=== PATIENT | male | born 1990 ===

== ENCOUNTER → 2019-06-19 | Outpatient (CLI) | payer OTHER ==
[~2019-06-19] MED LIST: ASPI-621 PO; BUPR150T15 PO; CELE100C PO; CYCL10TA2 PO; GABA-585 PO
--- NOTE | 2019-06-19 09:58 | PAIN ---
DATE OF SERVICE: 06/19/2019 INITIAL CONSULTATION FOR PAIN CLINIC DIAGNOSES: Lumbar radiculopathy with lumbar degenerative disk disease. CHIEF COMPLAINT: Low back and bilateral lower extremity pain. HISTORY OF PRESENT ILLNESS: This is a 29-year-old male, who presents with history of pain in the low back, bilateral lower extremities for many years since about 07/2015. 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 The patient had some treatment at outside facility with some facet joint injections, which were not effectively decreasing his pain significantly. He has had no other treatment since that time. The patient reports the pain in the low back is constant, sharp, stabbing, shooting, radiating into the lower extremities bilaterally, slightly worse on the right with more weakness in the right leg with fatigue easily with activity. The patient reports it is radiating to posterior gluteus, posterior thighs, posterior calves into the ankles and feet bilaterally, again with some weakness on the right side with activity. The patient reports the disability rating from 0-10, 10 being the worst, is a 5 with family home responsibilities, 6 with recreation, 2 with social activity, 7 with occupational activity, 4 with sexual behavior, 1 with self-care, 0 with life support activities. The patient did have an MRI scan of the lumbar spine showing at L4-L5 a small central disk protrusion without associated lateral recess narrowing with foraminal narrowing. L5-S1 shows mild loss of disk space present with small broad-based disk protrusion, but disk osteophyte complex without associated spinal canal narrowing or foraminal narrowing. The patient reports no overt loss of motor function, but significant fatigability, especially in the right leg with even walking or standing more than 5-10 minutes, better with sitting down or lying down. The patient reports it does awaken him from sleep occasionally, but not every night. It does not affect his bowel or bladder control. He does not use any assistive devices to ambulate. PAST MEDICAL HISTORY: Significant for some arthritis and depression. PREVIOUS SURGERY: Include right knee scope and wisdom teeth extraction. CURRENT MEDICATIONS: Include Neurontin, Flexeril, Celebrex, Excedrin and Wellbutrin. ALLERGIES: The patient has no known drug allergies. FAMILY HISTORY: Significant for no major medical problems or conditions that he is aware of. SOCIAL HISTORY: The patient does not drink alcohol, does not smoke, does not use any illegal, illicit or recreational drugs. Is single. Is currently active in , but is in incarcerated custody in [place], [place]. REVIEW OF SYSTEMS: The patient's review of systems is positive for those items mentioned in history of present illness. All systems reviewed and otherwise negative. It is complete, full and well documented on the patient's chart. PHYSICAL EXAMINATION: VITAL SIGNS: The patient's blood pressure is 133/80, pulse 80, respirations 16, temperature is 97.7 degrees Fahrenheit, height is 70 inches, weighs 208 pounds. GENERAL: The patient is awake, alert, oriented, appropriate, has very pleasant demeanor. HEENT: Shows normocephalic, atraumatic. Extraocular movements are intact and symmetrical. Oral cavity: Mucous membranes moist and pink. Dentition is intact. NECK: Shows anterior throat supple without palpable lymphadenopathy noted. Swallow reflex symmetrical. CHEST: Shows normal on inspection. Breath sounds are clear bilaterally. HEART: Shows S1, S2 clear. No murmurs auscultated. ABDOMEN: Soft, nontender, nondistended. No palpable organomegaly is noted. No rebound or guarding demonstrated. BACK: Shows spine grossly in the midline. Normal-appearing cervical lordotic curvature, thoracic kyphotic curvature and lumbar lordotic curvature. Lumbar paraspinous muscle shows symmetrical on inspection, on palpation shows some moderate tenderness diffusely bilaterally going diffusely without significant radiation. The patient's back shows good rotational motion both laterally, greater than 10 degrees right and left as well as extension greater than 10 degrees, forward flexion 45 degrees without significant pain or difficulty. No tenderness over the sacrum and sacroiliac regions over the spinous processes. EXTREMITIES: The patient's lower extremities show deep tendon reflexes at 2+ in the patellar, 1+ tendo-calcaneus tendons are equal. Motor exam is strong with 5/5 dorsiflexion, extension, quadriceps and hamstring flexion and symmetrical. Peripheral pulses are 1+ posterior tibia. No peripheral edema is noted. Lower extremities are warm and dry to touch, equal in color and appearance. Straight leg raise noted to be negative for reproduction of radicular symptoms. Gaenslen and Abdulkadir maneuvers are negative bilaterally as well. The patient is able to stand, stand on his toes without difficulty or loss of balance. Walks with a normal-appearing gait. Does not appear to favor the right or left lower extremities significantly and does not use any assistive devices to ambulate. SKIN: Shows warm and dry, good turgor. No edema. No sores, rashes or bruising throughout. IMPRESSION: 1. This is a 29-year-old male with about almost 4-year history of increasing pain in low back and bilateral lower extremities, worse on the right than the left. 2. MRI scan of lumbar spine as noted. 3. History of arthritis. PLAN: Options were discussed with the patient, including conservative medical management, physical therapy, interventional techniques. He would like to pursue interventional techniques as he has had other modalities in the past. We discussed a lumbar epidural steroid injection using description as well as anatomical models to describe the procedure. The patient will wait for preauthorization with his insurance provider. He does have a clinical bilateral L5-S1 radiculopathy, worse on the right than the left. We will wait for preauthorization and plan on translaminar L5-S1 lumbar epidural steroid injection at that time. TESSIE LEYVA MD DR: OC/royal JOB#: [id number] / [id number]
== END | disposition home or self-care (01) ==
LOC: PNCL 07:53 → EEVIPCON 08:40
PROVIDERS: ATTEND Anesthesiology
DX: M51.16 Intervertebral disc disorders with radiculopathy, lumbar region (principal); M19.90 Unspecified osteoarthritis, unspecified site; F32.9 Major depressive disorder, single episode, unspecified
CPT/HCPCS: G0463

== ENCOUNTER → 2020-02-04 | Outpatient (CLI) | payer OTHER ==
[~2020-02-04] MED LIST changes: +fiber supplement
--- NOTE | 2020-02-04 08:16 | PDOC ---
Progress Note - Pain Clinic Date of Service: DOS: DATE: 02/04/20 TIME: 08:09 Diagnosis: Dx: Lumbar radiculopathy with lumbar degenerative disc disease History or Present Illness: HPI: Mr. Cast a 29-year-old male returns for follow-up status post initial evaluation initially seen June 19, 2019 patient was still continued pain in the low back and bilateral lower extremities. Patient had been preauthorized for lumbar epidural steroid injection however was not able to return to the clinic prior to today and is preauthorization has . Patient continues to complain of pain in the low back bilateral lower extremities right greater than left are present bilaterally with stabbing pain in the back sharp shooting pain in the legs radiating lower extremities in the most posterior gluteus posterior thighs posterior calves rated a 7 on a scale of 10 is worse over the past week for an average to its least is a 4 today. Reports no new motor or sensory deficits no new bowel or bladder incontinence no sniffing and pain with walking standing changing positions is better when he is not been working out as much he doing some stretching strengthening exercises on his own. Patient reports it wakes him to sleep about every 7 hours or so he can usually reposition to get back to sleep. Patient reports the pain if he is not working out continuously or with any strenuous exercises is better but still present and is inhibiting his activities daily living fairly significantly. Physical Exam: VS: Blood pressure 138/80 pulse 94 respirations are 16 temperature 97.8 F height is 5 foot 10 inches weight is 201 pounds PE: PHYSICAL EXAMINATION: GENERAL: The patient is awake, alert, oriented, appropriate, very pleasant demeanor HEENT: Shows normocephalic, atraumatic. Extraocular movements are intact and symmetrical. Oral cavity: Mucous membranes moist and pink. Dentition is intact. NECK: Shows anterior throat supple without palpable lymphadenopathy noted. Swallow reflex symmetrical. CHEST: Shows normal on inspection. Breath sounds are clear bilaterally, no rales rhonchi or wheezes auscultated. HEART: Shows S1, S2 clear. No murmurs auscultated. ABDOMEN: Soft, nontender, nondistended. No palpable organomegaly is noted. No rebound or guarding demonstrated. BACK: Shows spine grossly in the midline. Normal-appearing cervical lordotic curvature. There is slightly increased thoracic kyphosis, some minor flattening of the lumbar lordotic curvature. Lumbar paraspinous muscles show symmetrical on inspection, on palpation shows some moderate tenderness diffusely throughout the upper, middle and lower distribution of the paraspinous muscles bilaterally but without specific trigger points, without radiation of pain. The patient has good rotational motion of the lumbar spine, both laterally as well as extension and flexion without significant difficulty. No tenderness over the spinous processes, sacrum or sacroiliac regions. EXTREMITIES: Lower extremities show deep tendon reflexes 2+ in the patellar and tendo calcaneus tendons. Motor exam is 5 on a scale of 5 with right dorsiflexion, extension, quadriceps and hamstring flexion and 5/5 on the left. Peripheral pulses are 1+ posterior tibial. No peripheral edema is noted bilaterally. Lower extremities are warm and dry to touch, equal in color and appearance. Straight leg raise noted to be positive on the right about 45 degre es, left side is mildly positive at 45 degrees but both are relieved or decreased with knee flexion.. Gaenslen's and Abdulkadir's maneuvers are negative as well. The patient is able to walk stand stand on his toes without significant difficulty or loss of motor function no loss of balance not use any assistive devices to ambulate. SKIN: Shows warm and dry, good turgor. No edema. No sores, rashes or bruising throughout. Options were discussed with the patient. The patient's old chart was reviewed and current medication regimen updated. [] Procedure: Procedure: None Medication Injected: Med Injected: None Condition at Discharge: Condition at Discharge: Options were discussed with the patient patient's old chart was reviewed his his current medication regimen updated current review of systems updated today as well. We will preauthorize patient for a lumbar epidural steroid injection at the L5-S1 level as patient has clinical radiculopathy at this level in bilateral lower extremities right greater than left. Patient will continue with g abapentin, also stretching strength exercises he is currently doing. Patient return to clinic in approximately 1 to 2 weeks once preauthorization is obtained for lumbar epidural steroid injection translaminar approach at the L5- S1 level at that time. TESSIE LEYVA MD Feb 04, 2020 08:16
== END | disposition home or self-care (01) ==
LOC: PNCL 07:34 → EEVIPCON 08:00
PROVIDERS: ATTEND Anesthesiology
DX: M51.16 Intervertebral disc disorders with radiculopathy, lumbar region (principal); Z79.82 Long term (current) use of aspirin; Z79.899 Other long term (current) drug therapy
CPT/HCPCS: G0463

== ENCOUNTER → 2020-11-22 | Outpatient (CLI) | payer OTHER ==
[~2020-11-22] MED LIST changes: +CETI10TA74 PO; +FLUO10CA13 PO; +FLUT9.9S NS; +IOHEXOL 180 MG/ML 10 ML VIAL. ONE; +MELA3TAB4 PO; +PROP60CA36 PO; +methylPREDNISolone ACETATE 40 MG/ML VIAL. ONE; +methylPREDNISolone ACETATE 80 MG/ML VIAL. ONE
--- NOTE | 2020-11-22 08:28 | PDOC ---
Progress Note - Pain Clinic Date of Service: DOS: DATE: 11/22/20 TIME: 08:25 Diagnosis: Dx: Lumbar radiculopathy with lumbar degenerative disc disease History or Present Illness: HPI: 30-year-old male returns for follow-up last seen January 2020 patient had been awaiting preauthorization for lumbar epidural steroid injection and has obtained that now would like to proceed patient reports pain in the low back bilateral lower extremities more on the right than the left the posterior gluteus posterior thigh into the posterior calf on the right side patient reports sharp and shooting stabbing at times worse with walking standing changing positions better with sitting or laying down still wakes him from sleep occasionally patient reports a 5-6 on scale 10 is average over the past weeks been a worst is a 7 least is a 1 is a 5 today. Patient reports no new motor or sensory deficits no new bowel or bladder incontinence or other complaints. Physical Exam: VS: Blood pressure is 112/63 pulse 67 respiration 16 temperature 97.9 F weight is 212 pounds PE: PHYSICAL EXAMINATION: GENERAL: The patient is awake, alert, oriented, appropriate, very pleasant demeanor HEENT: Shows normocephalic, atraumatic. Extraocular movements are intact and symmetrical. Oral cavity: Mucous membranes moist and pink. Dentition is intact. NECK: Shows anterior throat supple without palpable lymphadenopathy noted. Swallow reflex symmetrical. CHEST: Shows normal on inspection. Breath sounds are clear bilaterally, no rales rhonchi wheezes auscultated. HEART: Shows S1, S2 clear. No murmurs auscultated. ABDOMEN: Soft, nontender, nondistended, obese. No palpable organomegaly is noted. No rebound or guarding demonstrated. BACK: Shows spine grossly in the midline. Normal-appearing cervical lordotic curvature. There is slightly increased thoracic kyphosis, some minor flattening of the lumbar lordotic curvature. Lumbar paraspinous muscles show symmetrical on inspection, on palpation shows some moderate tenderness diffusely throughout the upper, middle and lower distribution of the paraspinous muscles, but without specific trigger points, without radiation of pain. The patient has good rotational motion of the lumbar spine, both laterally as well as extension and flexion without significant difficulty. No tenderness over the spinous processes, sacrum or sacroiliac regions. EXTREMITIES: Lower extremities show deep tendon reflexes 2+ in the patellar and tendo calcaneus tendons. Motor exam is 5 on a scale of 5 with right dorsiflexion, extension, quadriceps and hamstring flexion and 5/5 on the left. Peripheral pulses are 1+ posterior tibial. No peripheral edema is noted bilaterally. Lower extremities are warm and dry to touch, equal in color and appearance. Straight leg raise noted to be positive on the right about 45 degrees, left side is negative. Gaenslen's and Abdulkadir's maneuvers are negative bilaterally as well. SKIN: Shows warm and dry, good turgor. No edema. No sores, rashes or bruising throughout. Procedure: Procedure: Options were discussed with the patient. Patient's old chart was reviewed his current medication regimen updated current review of systems updated today as well. We will proceed with a lumbar epidural steroid injections today as a first in the series with fluoroscopic guidance. Risks were discussed including but not limited to: Bleeding, infection, possibility of epidural hematoma and subsequent neurological compromise, dural puncture, headaches, spinal cord and/or nerve damage, side effects of steroid medication, and poor results regarding pain control. Patient understands and wished to proceed. Patient will return to the clinic in approximate 2 is for follow-up, was counseled as to return appointment activity level and side effects to be aware of. Medication Injected: Med Injected: Procedure is lumbar epidural steroid injection under local anesthetic using sterile prep and drape at the L5-S1 level using C-arm fluoroscopic guidance in both AP and lateral views medications injected is 120 mg Depo-Medrol +10mL preservative-free normal saline and 2 mL contrast- condition at discharge is stable patient tolerated procedure well had no complications. Condition at Discharge: Condition at Discharge: Condition at discharge stable, patient tolerated procedure well and had no complications. TESSIE LEYVA MD November 22, 2020 08:27
--- NOTE | 2020-11-22 08:28 | PDOC4 ---
PROCEDURE Procedure Patient was consented for lumbar epidural steroid injection. Risks were dis cussed including but not limited to: Bleeding, infection, possibility of epidural hematoma and subsequent neurological compromise, dural puncture, headaches, spinal cord and/or nerve damage, side effects of steroid medication, and poor results regarding pain control. Patient understands and wished to proceed. Procedure is lumbar epidural steroid injection under local anesthetic using sterile prep and drape at the L5-S1 level using C-arm fluoroscopic guidance in both AP and lateral views medications injected is 120 mg Depo-Medrol +10mL preservative-free normal saline and 2 mL contrast- condition at discharge is stable patient tolerated procedure well had no complications. TESSIE LEYVA MD November 22, 2020 08:28
== END | disposition home or self-care (01) ==
LOC: PNCL 07:51 → EEVIPCON 08:00
PROVIDERS: ATTEND Anesthesiology
DX: M51.16 Intervertebral disc disorders with radiculopathy, lumbar region (principal); Z79.82 Long term (current) use of aspirin; Z79.899 Other long term (current) drug therapy
CPT/HCPCS: 62323; J1030; J1040; Q9965

== ENCOUNTER → 2021-02-09 | Outpatient (CLI) | payer OTHER ==
--- NOTE | 2021-02-09 08:09 | PDOC ---
Progress Note - Pain Clinic Date of Service: DOS: DATE: 02/09/21 TIME: 08:06 Diagnosis: Dx: Lumbar radiculopathy with lumbar degenerative disc disease History or Present Illness: HPI: 30-year-old male returns follow-up status post lumbar epidural steroid injection x1 last seen Nov 17 1520. Patient reports he did very well with this new 100s and improvement for the first month or so after about 6 weeks the pain began to return however in the low back and bilateral lower extremities still slightly worse on the right than the left and present bilaterally posterior gluteus posterior thighs patient reports is a 6 on scale 10 is worse over the past week for an average to its least is a 2 today patient reports is worse with walking standing better with sitting or laying down generally does not awaken her from sleep at night but has over the past few days patient reports that sharp and shooting in the low back severe at times on and off in intensity better with sitting or laying down is noted. Patient reports some equal pain in the left and right leg at this time with the right was worse previously but is the only new finding at this time. Patient reports no bowel or bladder incontinence no new motor or sensory deficit Physical Exam: VS: Blood pressure 107/64 pulse 66 respirations 18 temperature 97.4 F height is 5 feet 10 inches weight 211 pounds PE: PHYSICAL EXAMINATION: GENERAL: The patient is awake, alert, oriented, appropriate, very pleasant in demeanor HEENT: Shows normocephalic, atraumatic. Extraocular movements are intact and symmetrical. Oral cavity: Mucous membranes moist and pink. Dentition is intact. NECK: Shows anterior throat supple without palpable lymphadenopathy noted. Swallow reflex symmetrical. CHEST: Shows normal on inspection. Breath sounds are clear bilaterally, no rales rhonchi wheezes auscultated. HEART: Shows S1, S2 clear. No murmurs auscultated. ABDOMEN: Soft, nontender, nondistended. No palpable organomegaly is noted. No rebound or guarding demonstrated. BACK: Shows spine grossly in the midline. Normal-appearing cervical lordotic curvature. There is slightly increased thoracic kyphosis, some minor flattening of the lumbar lordotic curvature. Lumbar paraspinous muscles show symmetrical on inspection, on palpation shows some moderate tenderness diffusely throughout the upper, middle and lower distribution of the paraspinous muscles without specific trigger points, without radiation of pain. The patient has good rotational motion of the lumbar spine, both laterally as well as extension and flexion without significant difficulty. No tenderness over the spinous processes, sacrum or sacroiliac regions. EXTREMITIES: Lower extremities show deep tendon reflexes 2+ in the patellar and tendo calcaneus tendons. Motor exam is 5 on a scale of 5 with right dorsiflexion, extension, quadriceps and hamstring flexion and 5/5 on the left. Peripheral pulses are 1+ to posterior tibial. No peripheral edema is noted bilaterally. Lower extremities are warm and dry. SKIN: Shows warm and dry, good turgor. No edema. No sores, rashes or bruising throughout. Procedure: Procedure: Options discussed with the patient. Patient chart was reviewed his case regimen updated current review of systems updated today as well. We will proceed with a second lumbar epidural steroid injection today with fluoroscopic guidance. Risks were discussed including but not limited to: Bleeding, infection, possibility of epidural hematoma and subsequent neurological compromise, dural puncture, headaches, spinal cord and/or nerve damage, side effects of steroid medication, and poor results regarding pain control. Patient understands and wished to proceed. Patient will return to the clinic in approximate 2 weeks for follow-up, was counseled as to return appointment activity level, and side effects beware of. Medication Injected: Med Injected: Procedure is lumbar epidural steroid injection under local anesthetic using sterile prep and drape at the L5-S1 level using C-arm fluoroscopic guidance in both AP and lateral views medications injected is 120 mg Depo-Medrol +10mL preservative-free normal saline and 2 mL contrast- condition at discharge is stable patient tolerated procedure well had no complications. Condition at Discharge: Condition at Discharge: Condition at discharge is stable, patient tolerated the procedure well and had no complications. TESSIE LEYVA MD Feb 09, 2021 08:09
--- NOTE | 2021-02-09 08:09 | PDOC4 ---
Procedure Note: ICD 10 Code: ICD 10 Code: M54.16 M51.36 Procedure Note: Patient was consented for lumbar epidural steroid injection with fluoroscopic guidance. Risks were discussed including but not limited to: Bleeding, infection, possibility of epidural hematoma and subsequent neurological compromise, dural puncture, headaches, spinal cord and/or nerve damage, side effects of steroid medication, and poor results regarding pain control. Patient understands and wished to proceed. Procedure is lumbar epidural steroid injection under local anesthetic using sterile prep and drape at the L5-S1 level using C-arm fluoroscopic guidance in both AP and lateral views medications injected is 120 mg Depo-Medrol +10mL preservative-free normal saline and 2 mL contrast- condition at discharge is stable patient tolerated procedure well had no complications. TESSIE LEYVA MD Feb 09, 2021 08:09
== END ==
LOC: PNCL 07:26 → EEVIPCON 08:00
PROVIDERS: ATTEND Anesthesiology
DX: M51.17 Intervertebral disc disorders with radiculopathy, lumbosacral region (principal)
CPT/HCPCS: 62323; J1030; J1040; Q9965